=== PATIENT | male | born 1955 | race Two or more races ===

== ENCOUNTER 2016-10-18 10:33 | Inpatient (IN) | payer OTHER ==
[2016-10-17 10:15] VITALS: BMI 28.8
[~2016-10-18] VITALS: Ht 167.6 cm; Wt 65.1 kg
[2016-10-18] VITALS (23 sets, daily range): BP systolic 95–119; BP diastolic 55–66; PULSE 62–82; RESP 15–23; Ht 167.6 cm; Wt 65.1 kg
[~2016-10-18 10:33] MED LIST: ROCURONIUM 50 MG INJ ONE; SUCCINYLCHOLINE CHLORIDE 100 MG/5 ML SYG IV ONE
[2016-10-18] MEDS ORDERED: TAMS-14 PO (11:07)
[2016-10-18] MEDS ORDERED: FINA5TAB PO (11:08)
[2016-10-18] MEDS ORDERED: CEFTRIAXONE 1 GM/NS 50 ML IVPB SCH (11:30)
--- NOTE | 2016-10-18 12:31 | HPN ---
Date/Time of Note Date/Time of Note DATE: 10/18/16 TIME: 12:31 Interval H&P Admission Note Pt. seen H&P reviewed: No system changes ALISON DELACRUZ MD October 18, 2016 12:31
[2016-10-18] MEDS ORDERED: LIDOCAINE 1% (MDV) 20 ML INJ ONE (12:39)
[2016-10-18] MEDS ORDERED: PROPOFOL 20 ML ONE (12:39)
[2016-10-18] MEDS ORDERED: MIDAZOLAM 1 MG/ML 2 ML INJ ONE (12:39)
[2016-10-18] MEDS ORDERED: FENTAnyl 50 MCG/ML VIAL ONE ×2 (12:39→15:12)
[2016-10-18] MEDS ORDERED: ONDANSETRON 4 MG INJ ONE (12:54)
[2016-10-18] MEDS ORDERED: DEXAMETHASONE 4 MG/ML 1 ML INJ ONE (12:54)
[2016-10-18] MEDS ORDERED: FAMOTIDINE 20 MG INJ ONE (12:54)
[2016-10-18] MEDS ORDERED: DIPHENHYDRAMINE 50 MG INJ IV PRN (15:30)
[2016-10-18] MEDS ORDERED: MEPERIDINE 25 MG INJ IV PRN (15:30)
[2016-10-18] MEDS ORDERED: HYDROmorphONE (0.2 MG/ML) 10ML SYG IV PRN ×2 (15:30)
[2016-10-18] MEDS ORDERED: ONDANSETRON 4 MG INJ IV PRN (15:30)
[2016-10-18] MEDS ORDERED: DEXTROSE 5%-0.45% NACL 1,000 ML IV SCH (16:20)
[2016-10-18] MEDS ORDERED: HYDROCODONE/APAP (5/325) TAB PO PRN (16:30)
--- NOTE | 2016-10-18 18:34 | OPR ---
DATE OF OPERATION: 10/18/2016 PREOPERATIVE DIAGNOSIS: Benign prostatic hypertrophy with lower urinary tract symptoms. POSTOPERATIVE DIAGNOSIS: Benign prostatic hypertrophy with lower urinary tract symptoms. OPERATION PERFORMED: Transurethral resection of the prostate. TECHNIQUE: The patient was brought to the operating room. He was given general anesthesia and he w as given 1 gram of ceftriaxone IV at the start of the procedure. The patient was positioned in the lithotomy position. The genital area was prepped and draped in the usual sterile manner. Time out was done. The patient was identified by his name, date, and the procedure. Then, #26 Latvian bipolar resectoscope sheath was introduced under direct vision through the penile urethra all the wa y to the bladder. To be able to do that, I had to dilate his urethral meatus with Justus dilator s up to #30 Latvian. Once in the bladder, urine was collected for culture and sensitivity. The pros liriano was found to be very large and has a median lobe as well as both lateral lobes and anterior lob es were all large and obstructing. The bladder appeared to be trabeculated. Then, using the bipola r resectoscope, the prostate was resected starting with the median lobe and then I was able to visua lize the ureteral orifices and keep them intact and away from the resection. Then, I resected the r ight lateral lobe, then the anterior lobe, then the left lateral lobe. Then I had to resect a lot o f apical tissue and all of these were a lot of work. It took about 3 hours to be able to clean the whole prostate and get all the prostatic chips out. Also do a good hemostasis. So at the end of th e procedure, the bladder was emptied. There were no prostatic chips inside the bladder. Ureteral o rifices were intact. The channel was wide open and the hemostasis was very good. Therefore, after removing the resectoscope, I inserted a 24-Latvian 3-way Corona catheter and inflated the balloon wit h 90 mL of sterile water, connected the catheter to a drainage bag and started continuous bladder ir rigation with normal saline in the operating room to be continued later on. The patient tolerated t he procedure well and was transferred to recovery room in stable and satisfactory condition. Dictated By: ALISON WALKER/TC Conf#: [id number] DID#: [id number]
[2016-10-18] MEDS: DOCUSATE SODIUM 100 MG CAP PO SCH (21:00)
[2016-10-19] VITALS: BP 111/59; PULSE 67; RESP 18
[2016-10-19 04:49] LABS: ADD SCAN DIFF NO
[2016-10-19 04:56] LABS: BASOPHILS % 0.1 % (0.0-2.0); HEMATOCRIT 35.2 % (42.0-52.0); HEMOGLOBIN 11.8 g/dl (14.0-18.0); LYMPHOCYTES # 1.2 10^3/ul (0.8-2.9); LYMPHOCYTES % 13.4 % (15.0-51.0); MEAN CORPUSCULAR HEMOGLOBIN 31.2 pg (29.0-33.0); MEAN CORPUSCULAR HGB CONC 33.5 g/dl (32.0-37.0); MEAN CORPUSCULAR VOLUME 93.1 fl (82.0-101.0); MEAN PLATELET VOLUME 10.3 fl (7.4-10.4); MONOCYTE # 0.8 10^3/ul (0.3-0.9); MONOCYTES % 8.7 % (0.0-11.0); NEUTROPHIL # 6.9 10^3/ul (1.6-7.5); NEUTROPHILS % 77.4 % (39.0-77.0); PLATELET COUNT 238 10^3/UL (140-415); RED BLOOD COUNT 3.78 10^6/ul (4.70-6.10); RED CELL DISTRIBUTION WIDTH 12.7 % (11.5-14.5); WHITE BLOOD COUNT 8.9 10^3/ul (4.8-10.8)
--- NOTE | 2016-10-19 06:12 | CONS ---
DATE OF ADMISSION: 10/18/2016 DATE OF CONSULTATION: 10/18/2016 REASON FOR CONSULTATION: Medical management. HISTORY OF PRESENT ILLNESS: The patient is a 61-year-old male with a history of BPH who was admitte d for surgical intervention. He already underwent TURP (transurethral resection of the prostate) by Dr. Richards. Currently, he has a 3-way catheter in place with continuous bladder irrigation. He c omplains of minimal intermittent pain, otherwise overall he is feeling well. He denied any chest pa in. No shortness of breath, fever, chills, nausea, or vomiting. His vitals have been within normal limits and currently labs are still pending. REVIEW OF SYSTEMS: A 12-point review was performed, negative except as mentioned in the HPI. PAST MEDICAL HISTORY: As per HPI. SOCIAL HISTORY: Remote history of smoking likely, but he quit about 12 years ago. Drinks a glass o f wine almost every night. No history of illicit drug use. ALLERGIES: NO KNOWN DRUG ALLERGIES. HOME MEDICATION: Includes Flomax and Proscar. PHYSICAL EXAMINATION: VITAL SIGNS: Stable. GENERAL: The patient initially sleepy, but arousable to verbal stimuli. No acute distress. HEENT: No obvious head deformity, pupils react to light, extraocular muscles intact. CARDIOVASCULAR: Regular rate and rhythm. No extra sounds. LUNGS: Clear. ABDOMEN: Soft, nontender, nondistended. Positive bowel sounds. EXTREMITIES: No edema. GENITOURINARY: There is a 3-way catheter in place with continuous bladder irrigation with colored o utput. LABORATORY: Currently pending. IMPRESSION: A 61-year-old male with a history of symptomatic BPH who just underwent a TURP procedur e, and currently he is in stable condition. PLAN: Continue the bladder irrigation. Management will be per his urologist, Dr. Richards. We will provide pain medication as needed. Currently, his vital signs are stable. We will follow up with lab results in the morning. Continue antibiotics for now. Pursue workup and management per clinical course. Dictated By: FARTUN BYRD/TC Conf#: [id number] DID#: [id number]
[2016-10-19 08:10] VITALS: BP 106/57; RESP 18
[2016-10-19] MEDS ORDERED: CEFTRIAXONE 1 GM INJ IVPB SCH (09:00)
[2016-10-19] MEDS: DOCUSATE SODIUM 100 MG CAP PO SCH ×2 (09:06→21:21)
[2016-10-19] MEDS: CEFTRIAXONE 1 GM/NS 50 ML IVPB SCH (09:06)
--- NOTE | 2016-10-19 11:57 | CONS ---
Date/Time of Note Date/Time of Note DATE: 10/19/16 TIME: 11:54 Assessment/Plan Assessment/Plan Additional Assessment/Plan 1. Symptomatic BPH s/p TURP 2. Post op Pain Plan: Hb stable, on continuous bladder irrigation BP stable, Urology following will follow up Consultation Date/Type/Reason Admit Date/Time October 18, 2016 at 10:33 Initial Consult Date Type of Consultation: MEDICINE CONSULT Referring Provider: ALISON DELACRUZ MD 24 HR Interval Summary Free Text/Dictation no acute events,Hb stable, pt is on Continuous bladder irrigation Exam/Review of Systems Vital Signs Vitals Vital Signs Date Time Temp Pulse Resp B/P Pulse Ox O2 Delivery O2 Flow Rate FiO2 10/19/16 08:10 98.2 75 18 106/57 93 10/19/16 00:00 Nasal Cannula 2.0 Intake and Output 10/18/16 10/18/16 10/19/16 15:00 23:00 07:00 Intake Total 8970 ml Output Total 300 ml 1200 ml Balance -300 ml 7770 ml Exam GENERAL: Alert, awake, no acute distress HEENT: TAISHA, EOMI CARDIOVASCULAR: Regular rate and rhythm. No extra sounds. LUNGS: Clear. ABDOMEN: Soft, nontender, nondistended. Positive bowel sounds. EXTREMITIES: No edema. GENITOURINARY: + Corona catheter 3 way with continuous bladder irrigation Results Result Diagram: 10/19/16 0425 Results 24 hrs Laboratory Tests Test 10/19/16 04:25 White Blood Count 8.9 Red Blood Count 3.78 L Hemoglobin 11.8 L Hematocrit 35.2 L Mean Corpuscular Volume 93.1 Mean Corpuscular Hemoglobin 31.2 Mean Corpuscular Hemoglobin Concent 33.5 Red Cell Distribution Width 12.7 Platelet Count 238 Mean Platelet Volume 10.3 Neutrophils % 77.4 H Lymphocytes % 13.4 L Monocytes % 8.7 Eosinophils % 0.0 Basophils % 0.1 Nucleated Red Blood Cells % 0.0 Neutrophils # 6.9 Lymphocytes # 1.2 Monocytes # 0.8 Eosinophils # 0.0 Basophils # 0.0 Nucleated Red Blood Cells # 0.0 Medications Medications Current Medications Acetaminophen/ Hydrocodone Bitart 1 tab 1 tab Q4H PRN PO pain; Start 10/18/16 at 16:30 Ceftriaxone Sodium (Rocephin) 50 ml @ 100 mls/hr Q24H IVPB Last administered on 10/19/16 09:06; Admin Dose 100 MLS/HR; Start 10/19/16 at 09:00 Docusate Sodium (Colace) 100 mg BID PO Last administered on 10/19/16 09:06; Admin Dose 100 MG; Start 10/18/16 at 21:00 Magnesium Hydroxide (Milk Of Mag) 30 ml DAILY PRN PO CONSTIPATION; Start at 18:30 RACHELL LUCIANO MD October 19, 2016 11:57
[2016-10-19 14:00] VITALS: BP 116/68; PULSE 78; RESP 18
[2016-10-19 16:01] LABS: POTASSIUM 3.8 mmol/L (3.5-5.1)
[2016-10-19 16:04] LABS: CALCIUM 8.2 mg/dl (8.4-10.2); CREATININE 0.73 mg/dl (0.61-1.24)
[2016-10-19 19:10] VITALS: BP 120/66; RESP 18
[2016-10-19] MEDS: MAGNESIUM HYDROXIDE 30ML CUP PO PRN (20:58)
[2016-10-20 05:50] LABS: ADD SCAN DIFF NO
[2016-10-20 05:52] LABS: BASOPHILS % 0.1 % (0.0-2.0); EOSINOPHILS % 0.2 % (0.0-7.0); HEMATOCRIT 35.1 % (42.0-52.0); HEMOGLOBIN 11.7 g/dl (14.0-18.0); LYMPHOCYTES # 1.5 10^3/ul (0.8-2.9); LYMPHOCYTES % 17.5 % (15.0-51.0); MEAN CORPUSCULAR HEMOGLOBIN 31.6 pg (29.0-33.0); MEAN CORPUSCULAR HGB CONC 33.3 g/dl (32.0-37.0); MEAN CORPUSCULAR VOLUME 94.9 fl (82.0-101.0); MEAN PLATELET VOLUME 10.7 fl (7.4-10.4); MONOCYTE # 0.7 10^3/ul (0.3-0.9); MONOCYTES % 8.4 % (0.0-11.0); NEUTROPHIL # 6.5 10^3/ul (1.6-7.5); NEUTROPHILS % 73.6 % (39.0-77.0); PLATELET COUNT 222 10^3/UL (140-415); RED CELL DISTRIBUTION WIDTH 12.9 % (11.5-14.5); WHITE BLOOD COUNT 8.8 10^3/ul (4.8-10.8)
--- NOTE | 2016-10-20 06:10 | PN ---
DATE: 10/19/2016 SUBJECTIVE: The patient is status post transurethral resection of the prostate. He is feeling comf ortable. He denies having any pain, but he complains of having constipation. He has not had any flavio wel movement in 3 days. OBJECTIVE: VITAL SIGNS: Temperature is 98.9, blood pressure 120/66, pulse is 76, respirations 18. ABDOMEN: Soft. I saw him earlier this morning. I did stop the continuous bladder irrigation and a sked to plug the irrigation port with a catheter plug. I advised the patient to drink a lot of wate r, which he has been doing and now his urine is clear and he is very comfortable. He still, however , complains of the constipation. LABORATORY DATA: CBC shows a white count of 8.9, hemoglobin 11.8, hematocrit 35.2. BUN is 16, crea tinine 0.73. Electrolytes are normal. Pathology report is still pending. IMPRESSION: Status post transurethral resection of prostate, making good progress. Urine is clear without the bladder irrigation. Therefore, the plan is to discharge him tomorrow morning with the F oley catheter and I will see him in the office in about 3 to 4 days after to remove his Corona cathet er. Dictated By: ALISON WALKER/TC Conf#: [id number] DID#: [id number]
[2016-10-20 06:25] LABS: INR 0.99; PROTIME 13.1 Sec (12.2-14.2)
[2016-10-20 06:26] LABS: PARTIAL THROMBOPLASTIN TIME 25.2 Sec (25.0-35.0)
[2016-10-20 06:34] LABS: POTASSIUM 3.9 mmol/L (3.5-5.1)
[2016-10-20 06:36] LABS: CREATININE 0.62 mg/dl (0.61-1.24)
[2016-10-20 06:37] LABS: CALCIUM 8.5 mg/dl (8.4-10.2)
[2016-10-20 08:32] VITALS: BP 120/72; RESP 18
[2016-10-20] MEDS: CEFTRIAXONE 1 GM/NS 50 ML IVPB SCH (09:00)
[2016-10-20] MEDS: DOCUSATE SODIUM 100 MG CAP PO SCH (09:12)
--- NOTE | 2016-10-20 09:15 | PDOCDIS ---
Discharge Instructions CONDITION Patient Condition: Good HOME CARE INSTRUCTIONS: Diet Instructions: Reduced CalorieSpecial Diet: regular ACTIVITY: Activity Restrictions: Slowly Increase Activity Rest between Activity Avoid heavy lifting No Sexual Activity Do not Drive Bathing Restrictions: Shower FOLLOW UP/APPOINTMENTS Appointments follow up with Dr Richards next saturday. call [phone] on saturday for appointment ALISON RICHARDS MD October 20, 2016 09:15
[2016-10-20] MEDS: MAGNESIUM HYDROXIDE 30ML CUP PO PRN (09:22)
[2016-10-20] MEDS ORDERED: MAGNESIUM HYDROXIDE 30ML CUP PO ONE (09:30)
--- NOTE | 2016-10-20 11:17 | PN ---
Date/Time of Note Date/Time of Note DATE: 10/20/16 TIME: 11:17 Assessment/Plan VTE Prophylaxis VTE Prophylaxis Intervention: ambulation Lines/Catheters IV Catheter Type (from [facility], [place]): Saline Lock Urinary Cath still in place: Yes Assessment/Plan Chief Complaint/Hosp Course Assessment and plan 1. BPH status post TURP procedure. Bladder irrigation per urologist. Continue Corona catheter in place. Continue with analgesics as needed. Monitor H&H and for hematuria Disposition and plan: Appearing overall stable. Continue with analgesics. Tentative plan for discharge home per neurologist recommendations. Discussed plan of care with Dr. Carpenter Problems: Subjective 24 Hr Interval Summary Free Text/Dictation Comfortable at this time. No apparent distress seen. Exam/Review of Systems Vital Signs Vitals Vital Signs Date Time Temp Pulse Resp B/P Pulse Ox O2 Delivery O2 Flow Rate FiO2 10/20/16 08:32 98.2 74 18 120/72 94 10/19/16 14:00 Room Air 10/19/16 00:00 2.0 Intake and Output 10/19/16 10/19/16 10/20/16 15:00 23:00 07:00 Intake Total 4650 ml 1400 ml 1400 ml Output Total 3000 ml 2200 ml 5500 ml Balance 1650 ml -800 ml -4100 ml Exam Constitutional: alert Psych: no complaints Head: normocephalic Neck: supple, No jvd Respiratory: clear to auscultation, normal air movement Cardiovascular: regular rate and rhythm Gastrointestinal: nl liver, spleen, soft Genitourinary - Male: other (Corona catheter in place) Neurological: EXHAUSTER II-XII intact, nl mental status, nl speech Skin: nl turgor Results Result Diagram: 10/20/16 0420 10/20/16 0420 Results 24 hrs Laboratory Tests Test 10/19/16 15:30 10/20/16 04:20 Sodium Level 135 140 Potassium Level 3.8 3.9 Chloride Level 97 101 Carbon Dioxide Level 31 30 Anion Gap 11 13 Blood Urea Nitrogen 16 13 Creatinine 0.73 0.62 Glucose Level 112 113 Calcium Level 8.2 L 8.5 White Blood Count 8.8 Red Blood Count 3.70 L Hemoglobin 11.7 L Hematocrit 35.1 L Mean Corpuscular Volume 94.9 Mean Corpuscular Hemoglobin 31.6 Mean Corpuscular Hemoglobin Concent 33.3 Red Cell Distribution Width 12.9 Platelet Count 222 Mean Platelet Volume 10.7 H Neutrophils % 73.6 Lymphocytes % 17.5 Monocytes % 8.4 Eosinophils % 0.2 Basophils % 0.1 Nucleated Red Blood Cells % 0.0 Neutrophils # 6.5 Lymphocytes # 1.5 Monocytes # 0.7 Eosinophils # 0.0 Basophils # 0.0 Nucleated Red Blood Cells # 0.0 Prothrombin Time 13.1 Prothrombin Time Ratio 1.0 INR International Normalized Ratio 0.99 Activated Partial Thromboplast Time 25.2 Medications Medications Current Medications Acetaminophen/ Hydrocodone Bitart 1 tab 1 tab Q4H PRN PO pain; Start 10/18/16 at 16:30 Ceftriaxone Sodium (Rocephin) 50 ml @ 100 mls/hr Q24H IVPB Last administered on 10/19/16 09:06; Admin Dose 100 MLS/HR; Start 10/19/16 at 09:00 Docusate Sodium (Colace) 100 mg BID PO Last administered on 10/20/16 09:12; Admin Dose 100 MG; Start 10/18/16 at 21:00 Magnesium Hydroxide (Milk Of Mag) 30 ml DAILY PRN PO CONSTIPATION Last administered on 10/20/16 09:22; Admin Dose 30 ML; Start 10/18/16 at 18:30 HOMAR LUCAS October 20, 2016 11:17
--- NOTE | 2016-10-20 12:11 | DS ---
DATE OF ADMISSION: 10/18/2016 DATE OF DISCHARGE: 10/20/2016 ADMITTING DIAGNOSIS: Benign prostatic hypertrophy with lower urinary tract symptoms. DISCHARGE DIAGNOSIS: Benign prostatic hypertrophy with lower urinary tract symptoms, pathology is p ending. BRIEF HISTORY AND PHYSICAL: This is a 61-year-old male who has symptoms of prostate enlargement and obstruction. He was found to have a very large prostate on pelvic ultrasound. He has been on medi cations, but these were not helping him enough. Therefore, decided for transurethral resection of t he prostate. HOSPITAL COURSE: He underwent transurethral resection of the prostate on the day of the admission. His prostate was very large. Postop, he did have continuous bladder irrigation with normal saline and therefore was admitted to the hospital. Yesterday, the return with irrigation was reasonably cl ear. Therefore, we stopped the irrigation and kept him to watch the color of the urine. It remaine d clear, but it had some blood tinge in it. He has been constipated and having bladder spasms; ther efore, kept him overnight. This morning, he is reasonably comfortable. The color of the urine is s till pinkish, but there are no blood clots and the catheter is draining well. He still has not had a bowel movement, even though he has had milk of magnesia given. We will give him another dose of m ilk of magnesia with the hope that he will have a bowel movement. If he does not, he could also debora e another dose later on. The pathology report is pending. His CBC shows a white count of 8.8, hemoglobin 11.7, hematocrit 35.1. BUN is 13, creatinine 0.62. The pathology report again is still pending. The plan is to discharge him home. DISCHARGE MEDICATIONS: He will go home on: 1. Cipro 500 mg (20 tablets) 1 tablet every 12 hours. 2. Colace 100 mg (100 tablets) 1 tablet every 12 hours. 3. I will start him on oxybutynin 5 mg (20 tablets) 1 tablet every 8 hours to help prevent the blad arcadio spasm. 4. He will take milk of magnesia 30 mL as needed for constipation. I prescribed 300 mL. 5. Also, I prescribed [place] 5/325 (#30) 1 tablet every 6 hours for pain p.r.n. DISCHARGE INSTRUCTIONS: The patient is to follow up with me in the office in about 4 to 5 days, and he is to call my office for an appointment. He is instructed not do any strenuous activity and dri nk a lot of water to keep the urine clear. If he has any questions, he could certainly call me. Dictated By: ALISON WALKER/TC Conf#: [id number] DID#: [id number]
== END 2016-10-20 15:15 | disposition home or self-care (01) | DRG 714 ==
LOC: REC 10:33 → EDSTATUS 12:30 → MS1 18:25
PROVIDERS: ADMIT Urology; ATTEND Urology
PROC: 0VT08ZZ Resection of Prostate, Via Natural or Artificial Opening Endoscopic (ICD-10-PCS; principal; 2016-10-18 12:30)
DX: N40.1 Benign prostatic hyperplasia with lower urinary tract symptoms (principal)
CPT/HCPCS: 80048; 85025; 85610; 85730; 88309; J0696; J1100; J2250; J2405; J3010; J7042; J7999

== ENCOUNTER 2016-11-01 11:24 | Outpatient (CLI) | payer OTHER ==
[~2016-11-01] VITALS: Ht 167.6 cm; Wt 95.0 kg
[2016-11-01] MEDS ORDERED: OXYB5SYR2 PO (11:40)
[2016-11-01 11:44] VITALS: BP 118/73; PULSE 67; RESP 18
[2016-11-01 11:55] VITALS: Ht 167.6 cm; Wt 95.0 kg
--- NOTE | 2016-11-01 11:57 | PN ---
Date/Time of Note Date/Time of Note DATE: 11/01/16 TIME: 11:51 Outpatient Progress Note Chief Complaint Hematuria/BPH/status post prostatectomy/obesity HPI Hematuria/patient has hematuria, patient had recent surgery, patient has slight frequency, urgency, no fever chill, no back pain, no fatigue, no dizziness, no lightheadedness, BPH/patient had a BPH, patient had difficulty in urination, at present patient doing well, patient had surgery, Status post prostatectomy/patient has prostatectomy, still has hematuria, no fever chill, patient finished antibiotic, Obesity/patient slightly obese, no history of any hypothyroidism or other medical problem, Review of Systems Const: No Fever, no chills, no Wt. loss, no Fatigue, normal appetite, no diaphoresis. Eyes: No pain, no discharge, no redness, no visual change, no foreign body. ENT: No pain, no bleeding, no congestion, no sore throat, no dysphagia, no discharge or rhinitis. Lymph: No adenopathy, no tender nodes, no lymphedema. Resp: No SOB, no cough, no sputum, no wheezing, no chest pain. CV: No chest pain, no palpitaions, no WILSON, no PND, no edema. GI: Normal appetite, no pain, no nausea, no vomiting, no diarrhea, no blood, no constipation. : Mild frequency, no urgency, no dysuria, and patient has hematuria, no flank pain, no discharge, no bleeding. Musc: No bone/joint pain, no back pain, no neck pain, no knee pain, no restricted ROM. Skin: No rash, no skin lesions, no erythema, no laceration, no bruising, no pruritus. Neuro: No FUENTES, no dizziness, no syncope, no seizure, no focal-weakness. Endo: No polyuria, no polydypsia, no dry-skin, no temp-intolerance. Psych: No hallucinations, no depression, no anxiety, no suicidal ideation. Ext: No edema, no pain, no ulcer, no weakness. Physical Exam General Appearance: A 61 year-old male who appears well-developed, well- nourished, in no acute distress. HEENT: Head normocephalic, atraumatic. Pupils equal, round, reactive to light and accommodate. Sclerae are no jaundice. Nasal turbinates pink without erythema or nasal discharge. Mucous membranes pink and moist without lesions. Oropharynx clear without any exudate or discharge. NECK: Supple. Trachea midline, No thyromegaly, No cervical lymphadenopathy, No mass, No carotid bruits, No JVD, Carotid pulses 2+ bilaterally. PULMONARY: Clear to auscultaion bilaterally, No retractions, Chest expansion symmetric bilaterally, no rales, no ronchi, no dulness on percussion. CARDIAC: Normal SI and S2, Regular rate and rythm, no murmur, gallop, or rub. GASTROINTESTINAL: Abdomen is soft, non-tender, Non Rigid, No distention, Positive bowel sounds x4 quadrants, Liver normal. SKIN: Warm, dry, no rash, no bruise, no echmosis. EXTREMITIES: Bilateral lower extremities normal, no edema, no phlabitus, pulse palpable, no contracture. MUSCULOSKELETAL: Spine Normal, Non-tender, Normal range of motion, No swelling, no deformity, no clubbing, or cyanosis, the patient has no edema to bilateral lower extremities, dorsalis pedis pulses palpable bilaterally. NEUROLOGIC: The patient is awake, alert, oriented, responding to yes/no questions appropriately, moving all extremities, cranial nerve intact, normal strenght, normal power, normal coordination, normal gait. Allergies Coded Allergies: No Known Allergy (Unverified , 10/18/16) PMH BPH/ status post prostatectomy/obesity Social Hx No smoking no drinking, Family Hx Noncontributory Assessment/Plan Impression Hematuria/BPH/status post prostatectomy/obesity/history of prediabetes Plan Patient education done about surgery and possible complication, at present patient feeling fine, patient does not feel any dizziness or weakness, patient still has hematuria, We will repeat CBC in few days, and if patient is anemic will start iron, Patient advised to follow with the primary care physician, and urologist, Medications Home Meds Reported Medications Oxybutynin Chloride* (Oxybutynin Chloride*) 5 Mg/5 Ml Syrup, 5 MG PO TID, ML 11/01/16 EDILMA LUCIANO MD Nov 01, 2016 11:57
== END 2016-11-01 16:29 | disposition home or self-care (01) ==
LOC: DCC 11:24
PROVIDERS: ATTEND Internal Medicine
DX: R31.9 Hematuria, unspecified (principal); N40.0 Benign prostatic hyperplasia without lower urinary tract symptoms; E66.9 Obesity, unspecified; R73.03 Prediabetes

== ENCOUNTER 2016-11-15 11:38 | Outpatient (CLI) | payer OTHER ==
[~2016-11-15] VITALS: Ht 167.6 cm; Wt 96.4 kg
[~2016-11-15 11:38] MED LIST changes: +OXYB5SYR2 PO; -ROCURONIUM 50 MG INJ ONE; -SUCCINYLCHOLINE CHLORIDE 100 MG/5 ML SYG IV ONE
[2016-11-15 11:41] VITALS: BP 122/68; PULSE 70; RESP 16; Ht 167.6 cm; Wt 96.4 kg
--- NOTE | 2016-11-15 12:19 | PN ---
Date/Time of Note Date/Time of Note DATE: 11/15/16 TIME: 12:15 Outpatient Progress Note Chief Complaint Hematuria/status post prostatectomy/BPH HPI Hematuria/patient has minimal discoloration of the urine, drinking plenty of fluid, no vic hematuria, improved significantly, Status post prostatectomy/patient has prostatectomy, patient has slight burning on urination, at the end, no fever chill, no back pain, no surgical problem, BPH/no frequency urgency, patient had surgery, Review of Systems Const: No Fever, no chills, no Wt. loss, no Fatigue, normal appetite, no diaphoresis. Eyes: No pain, no discharge, no redness, no visual change, no foreign body. ENT: No pain, no bleeding, no congestion, no sore throat, no dysphagia, no discharge or rhinitis. Lymph: No adenopathy, no tender nodes, no lymphedema. Resp: No SOB, no cough, no sputum, no wheezing, no chest pain. CV: No chest pain, no palpitaions, no WILSON, no PND, no edema. GI: Normal appetite, no pain, no nausea, no vomiting, no diarrhea, no blood, no constipation. : Mild frequency, and urgency, and dysuria, no hematuria, no flank pain, no discharge, no bleeding. Musc: No back pain, no neck pain, no knee pain, no restricted ROM. Skin: No rash, no skin lesions, no erythema, no laceration, no bruising, no pruritus. Neuro: No FUENTES, no dizziness, no syncope, no seizure, no focal-weakness. Endo: No polyuria, no polydypsia, no dry-skin, no temp-intolerance. Psych: No hallucinations, no depression, no anxiety, no suicidal ideation. Ext: No edema, no pain, no ulcer, no weakness. Physical Exam General Appearance: A 61 year-old male who appears well-developed, well- nourished, in no acute distress. HEENT: Head normocephalic, atraumatic. Pupils equal, round, reactive to light and accommodate. Sclerae are no jaundice. Nasal turbinates pink without erythema or nasal discharge. Mucous membranes pink and moist without lesions. Oropharynx clear without any exudate or discharge. NECK: Supple. Trachea midline, No thyromegaly, No cervical lymphadenopathy, No mass, No carotid bruits, No JVD, Carotid pulses 2+ bilaterally. PULMONARY: Clear to auscultaion bilaterally, No retractions, Chest expansion symmetric bilaterally, no rales, no ronchi, no dulness on percussion. CARDIAC: Normal SI and S2, Regular rate and rythm, no murmur, gallop, or rub. GASTROINTESTINAL: Abdomen is soft, non-tender, Non Rigid, No distention, Positive bowel sounds x4 quadrants, Liver normal. SKIN: Warm, dry, no rash, no bruise, no echmosis. EXTREMITIES: Bilateral lower extremities normal, no edema, no phlabitus, pulse palpable, no contracture. MUSCULOSKELETAL: Spine Normal, Non-tender, Normal range of motion, No swelling, no deformity, no clubbing, or cyanosis, the patient has no edema to bilateral lower extremities, dorsalis pedis pulses palpable bilaterally. NEUROLOGIC: The patient is awake, alert, oriented, responding to yes/no questions appropriately, moving all extremities, cranial nerve intact, normal strenght, normal power, normal coordination, normal gait. Allergies Coded Allergies: No Known Allergy (Unverified , 10/18/16) PMH BPH/status post prostatectomy/obesity Social Hx No change Family Hx No change Assessment/Plan Impression Hematuria improving/status post prostatectomy/BPH/obesity Plan Patient's frequency urgency improved significantly, urine is almost clear, no fever chill, patient doing very well, Patient encouraged to follow with the primary care physician, Patient also encouraged to lose weight, Medications Home Meds Reported Medications Oxybutynin Chloride* (Oxybutynin Chloride*) 5 Mg/5 Ml Syrup, 5 MG PO TID, ML 11/01/16 EDILMA LUCIANO MD Nov 15, 2016 12:19
== END 2016-11-15 16:33 | disposition home or self-care (01) ==
LOC: DCC 11:38
PROVIDERS: ATTEND Internal Medicine
DX: R31.9 Hematuria, unspecified (principal); N40.0 Benign prostatic hyperplasia without lower urinary tract symptoms; E66.9 Obesity, unspecified; Z68.34 Body mass index [BMI] 34.0-34.9, adult